=== PATIENT | female | born 1940 | race Caucasian/White ===

== ENCOUNTER 2017-07-02 11:15 | Emergency (ER) | payer BC ==
[~2017-07-02] VITALS: Ht 160 cm; Wt 62.8 kg
[2017-07-02 11:17] VITALS: TEMP 36.6; Ht 160 cm; Wt 62.8 kg
[2017-07-02] MEDS ORDERED: AMLO-114 PO (11:54)
[2017-07-02] MEDS ORDERED: MULT-506 PO (11:54)
[2017-07-02] MEDS ORDERED: ASPCH81X PO (11:54)
[2017-07-02] MEDS ORDERED: OMEG10007 PO (11:55)
[2017-07-02] MEDS ORDERED: ONDANSETRON 4MG OD TAB PO STA (12:22)
[2017-07-02] MEDS ORDERED: CYCLOBENZAPRINE HCL 5 MG TAB PO STA ×2 (12:22→13:57)
[2017-07-02] MEDS ORDERED: ACETAMINOPHEN 500 MG TAB PO STA (12:22)
[2017-07-02] MEDS ORDERED: TRAMADOL HCL 50 MG TAB PO STA (13:17)
--- NOTE | 2017-07-02 13:53 | EMERGENCY ROOM VISIT NOTE ---
History Report prepared by Jennifer: Christine Monzon Under the Supervision of: Dr. Maurice Coronel M.D. First contact with patient: 11:55 Chief Complaint: BACK PAIN Stated Complaint: BACK PAIN History of Present Illness The patient is a 77 year old white female with a past medical history of spinal stenosis, hypertension, and peripheral neuropathy who presents to the ED with a cc of constant back pain beginning this morning. The patient has chronic back pain that she states has been well-controlled at home. This morning she woke up with "excruciating" pain and difficulty walking secondary to pain. She reports "difficulty balancing" but denies feeling like the room is spinning. She took two doses of 200mg ibuprofen this morning, which helped to alleviate some of her pain. She rates her current pain as a 1/10. The patient describes her pain as "dull" and "achy." It radiates all the way down her legs. The patient saw [facility] two weeks ago and they reviewed her recent MRI of the lumbar spine. She was scheduled to have an epidural last week, but it was postponed due to insurance. She is scheduled to have this procedure this week. Negative headache, sore throat, numbness, weakness, cough, chest pain, shortness of breath, incontinence , urinary symptoms, diarrhea, and recent weight loss Source of History: patient Onset: this morning Position: back (lower) Symptom Intensity: 1/10 Quality: ache, dull Timing: constant Modifying Factors (Worsening): other (walking) Modifying Factors (Relieving): ibuprofen Associated Symptoms: No headache, No sorethroat, No cough, No chest pain, No SOB, No diarrhea, No urinary symptoms, No weakness, No numbness Review of Systems See HPI for pertinent positives and negatives. A total of ten systems were reviewed and were otherwise negative. Past Medical & Surgical Medical Problems: (1) Hypertension (2) Peripheral neuropathy (3) Spinal stenosis Surgical Problems: (1) History of cholecystectomy (2) History of hysterectomy Family History Cancer FHx: gallbladder disease Heart disease Hypertension Social History Smoking Status: Former Smoker Smokeless Tobacco Use: No Alcohol Use: occasionally Drug Use: none Marital Status: Housing Status: lives with significant other Occupation Status: retired Current/Historical Medications Scheduled Amlodipine (Norvasc), 10 MG PO DAILY Aspirin (Aspirin Chewable), 81 MG PO DAILY Fish Oil ([place]-3), 1 DOSE PO UD Multivitamin (Multivitamin), 1 TAB PO DAILY Scheduled PRN Cyclobenzaprine Hcl (Flexeril), 10 MG PO TID PRN for Muscle Spasms Allergies Coded Allergies: Metronidazole (Unverified Allergy, Unknown, RASH, 07/02/17) Physical Exam Vital Signs Date Time Temp Pulse Resp B/P (MAP) Pulse Ox O2 Delivery O2 Flow Rate FiO2 07/02/17 15:24 91 18 150/78 95 07/02/17 14:47 74 16 131/78 96 Room Air 07/02/17 13:53 71 16 129/87 94 Room Air 07/02/17 13:41 131/71 07/02/17 11:37 78 16 131/71 97 Room Air 07/02/17 11:17 36.6 102 18 138/78 96 Room Air Physical Exam GENERAL: Awake, alert, well-appearing, NAD HENT: Normocephalic, atraumatic. EYES: Normal conjunctiva. Sclera non-icteric. NECK: Supple. No nuchal rigidity. FROM. RESPIRATORY: CTAB, no rhonchi, wheezing, crackles CARDIAC: RRR, no MRG ABDOMEN: Soft, NTND, BS+ MSK: No chest wall TTP, no LE edema. Mild pain with internal and external rotation of the left leg. Positive straight leg raise on the left. Positive ALBERTINA test of the left. NEURO: GCS 15, CN 2-12 intact, moves all 4s on command. No pronator drift, good finger to nose. She has some mild decreased sensation to the plantar aspects of both feet - chronic SKIN: No rash or jaundice noted. Medical Decision & Procedures Medications Administered Medications (Trade) Dose Ordered Sig/Amanda Route Start Time Stop Time Status Last Admin Dose Admin Prednisone (PredniSONE TAB) 60 mg NOW STAT PO 07/02/17 12:22 07/02/17 12:25 DC 07/02/17 12:37 60 MG Cyclobenzaprine HCl (Flexeril Tab) 10 mg ONE STAT PO 07/02/17 13:57 07/02/17 13:58 DC 07/02/17 13:53 10 MG ED Course 1207: The patient was evaluated in room B8. A complete history and physical exam was performed. 1222: Prednisone 60 mg PO, Zofran 4 mg PO - pt refused, Flexeril 10 mg PO - pt refused, Tylenol 1000 mg PO - pt refused 1311: I reevaluated the patient and discussed the treatment plan wit her. 1317: Ultram 25 mg PO - pt refused. 1357: Flexeril tab 10 mg PO 1507: I reassessed the patient at this time. She is feeling better and resting comfortably. I discussed the results and treatment plan with the patient. I answered all pertaining questions that she had. She expressed understanding and verbalized agreement. The patient will be discharged home. Medical Decision Differential diagnosis: Etiologies such as musculoskeletal, disc herniation, fracture, aortic disease, metastatic disease, cord compression, discitis, infection, renal colic, gastrointestinal, acute exacerbation of chronic back pain, sciatica, cauda equina, as well as others were entertained. The patient is a 77 year old white female with a past medical history of spinal stenosis, hypertension, and peripheral neuropathy who presents to the ED with a cc of constant back pain beginning this morning. Patient does have a history of spinal stenosis and had followed up with orthopedist as well as a pain management physician and was pending an epidural injection. Patient is admitted to get this due to insurance issues. Patient does not have any other high risk findings or concerns given her low back pain and denies numbness, tingling, weakness, bowel or bladder incontinence or retention, unexplained weight loss, or saddle anesthesia. Patient did feel earlier as though she had some unsteady gait however she denied any headache, shortness of breath, chest pain, numbness, weakness, or tingling. Patient had taken some Motrin which mildly improved her pain. Patient denied any urinary complaints. Patient was ordered medications some of which she refused. After discussion with the patient she agreed to take some medications. Patient did feel improved after additional medications. Patient had no further complaints and was able to ambulate without any difficulty. Patient was told to follow up with her pain management physician and given additional back exercises instructions. Patient was also told to take [id number] and prescription medications to help with the pain in the interim. Patient was given strict follow-up, discharge, return precautions and was told to return if she had a numbness, tingling, weakness, bowel or bladder incontinence, or saddle anesthesia. Patient and family agree to plan of care and patient was discharged home. Medication Reconcilliation Current Medication List: was personally reviewed by me Blood Pressure Screening Patient's blood pressure: Elevated blood pressure Blood pressure disposition: Elevated BP felt to be situational Impression Primary Impression: Spinal stenosis Additional Impression: Low back pain Scribe Attestation The scribe's documentation has been prepared under my direction and personally reviewed by me in its entirety. I confirm that the note above accurately reflects all work, treatment, procedures, and medical decision making performed by me. Departure Information Dispostion Home / Self-Care Prescriptions Cyclobenzaprine Hcl (FLEXERIL) 10 Mg Tab 10 MG PO TID Y for Muscle Spasms, #12 TAB Prov: Maurice Coronel M.D. 07/02/17 Referrals No Doctor, Assigned (PCP) Patient Instructions Back Pain Relieve, Exercises Back Seated Rotation, Exercises Back Side Stretch, Exercises Lower Back Rotation, My LegCyte Additional Instructions Please return to the emergency department if you have worsening or recurrent symptoms not amenable to at-home treatment. Please call for a follow-up appointment with her primary care physician. Please take your medications as prescribed. If you have other concerns and/or complaints please feel free to also call your primary care physician's office or return the ED for further evaluation, management, and treatment. Please take 400mg of ibuprofen/motrin/Advil every 6 hours for next two days with food. Please take Tylenol 1000mg every 6 hours. You may take flexeril for breakthrough discomfort. Please avoid driving or operating heavy machinery as you may become sleep with Flexeril use. Problem Qualifiers Primary Impression: Spinal stenosis Spinal region: lumbar Qualified Codes: M48.06 - Spinal stenosis, lumbar region Additional Impression: Low back pain Chronicity: acute Back pain laterality: left Sciatica presence: with sciatica Sciatica laterality: sciatica of left side Qualified Codes: M54.42 - Lumbago with sciatica, left side
[2017-07-02] MEDS ORDERED: CYCL10TA6 PO (15:10)
[2017-07-02 15:24] VITALS: BP 150/78; PULSE 91; O2SAT 95
== END 2017-07-02 15:26 | disposition home or self-care (01) ==
LOC: C.EDB 11:16
DX: M54.5 Low back pain (principal); M48.00 Spinal stenosis, site unspecified; I10 Essential (primary) hypertension; G62.9 Polyneuropathy, unspecified; Z90.49 Acquired absence of other specified parts of digestive tract; Z90.710 Acquired absence of both cervix and uterus; Z79.82 Long term (current) use of aspirin; Z79.899 Other long term (current) drug therapy; Z87.891 Personal history of nicotine dependence; Z88.8 Allergy status to other drugs, medicaments and biological substances; Z80.9 Family history of malignant neoplasm, unspecified; Z83.79 Family history of other diseases of the digestive system; Z82.49 Family history of ischemic heart disease and other diseases of the circulatory system